=== PATIENT | female | born 1970 | race Caucasian/White ===

== ENCOUNTER 2019-11-11 10:11 | Outpatient (CLI) | payer BC, SELFPAY ==
--- NOTE | ~2019-11-11 | MM_ITS ---
EXAMINATION: MM screening baldo BI w yana HISTORY: Screening mammogram TECHNIQUE: Craniocaudal and mediolateral oblique 3-D tomosynthesis images were obtained and synthetic 2-D images were generated. CAD analysis was submitted and interpreted. COMPARISON: 05/07/2018 diagnostic left digital mammogram 04/26/2018, 03/27/2017 bilateral digital screening mammogram examinations BREAST PARENCHYMAL COMPOSITION: The breasts are heterogeneously dense, which may obscure small masses . FINDINGS: There is no evidence of suspicious mass, calcification, or architectural distortion to sugg est malignancy in either breast. There has been no suspicious interval change. IMPRESSION: 1. No mammographic evidence of malignancy. 2. Recommend routine screening mammography in one year. BI-RADS Category 1: Negative Reviewed, dictated and finalized at location A.
== END 2019-11-11 10:12 | disposition home or self-care (01) ==
LOC: ANHIMG 10:36
PROVIDERS: PCP Family Medicine; Visit Provider Physician Assistant
DX: Z12.31 Encounter for screening mammogram for malignant neoplasm of breast (principal)
CPT/HCPCS: 77063; 77067

== ENCOUNTER 2021-04-19 07:44 | Outpatient (CLI) | payer BC, SELFPAY ==
--- NOTE | ~2021-04-19 | MM_ITS ---
EXAMINATION: MM screening baldo BI w yana HISTORY: Screening TECHNIQUE: Craniocaudal and mediolateral oblique 3-D tomosynthesis images were obtained and synthetic 2-D images were generated. CAD analysis was submitted and interpreted. COMPARISON: Comparison to multiple prior studies sequentially, with oldest reviewed study dated 06/03. BREAST PARENCHYMAL COMPOSITION: The breasts are heterogeneously dense, which may obscure small masses . FINDINGS: There is no evidence of suspicious mass, calcification, or architectural distortion to sugg est malignancy in either breast. There has been no suspicious interval change. IMPRESSION: 1. No mammographic evidence of malignancy. 2. Recommend routine screening mammography in one year. BI-RADS Category 1: Negative Reviewed, dictated and finalized at location A.
== END 2021-04-19 07:45 | disposition home or self-care (01) ==
LOC: ANHIMG 07:46
PROVIDERS: PCP Physician Assistant; Visit Provider Physician Assistant
DX: Z12.31 Encounter for screening mammogram for malignant neoplasm of breast (principal)
CPT/HCPCS: 77063; 77067

== ENCOUNTER 2021-04-30 09:05 | Outpatient (CLI) | payer BC, SELFPAY ==
--- NOTE | ~2021-04-30 | US_ITS ---
EXAMINATION: US pelvic complete w TV DATE: 04/30/2021 09:53 INDICATION: Displacement of IUD. Comparison:No prior studies for comparison. TECHNIQUE: Multiple transabdominal and endovaginal sonographic images of the pelvis performed. FINDINGS: The uterus measures 9.9 x 6.5 x 6.1 cm. There is a uterine fibroid measuring 1.6 x 1.7 x 1. 3 cm. IUD is identified in the endometrium. The endometrial complex measures 11 mm. The ovaries are not visualized. There is no free fluid in the pelvis. There are no abnormal masses seen on either side. IMPRESSION: 1. 1.7 cm uterine fibroid. 2: IUD in expected position in the endometrium. Reviewed, dictated and finalized at location A.
== END 2021-04-30 09:06 | disposition home or self-care (01) ==
PROVIDERS: PCP Physician Assistant; Visit Provider Obstetrics & Gynecology
DX: Z97.5 Presence of (intrauterine) contraceptive device (principal); D25.9 Leiomyoma of uterus, unspecified
CPT/HCPCS: 76830; 76856

== ENCOUNTER 2021-10-21 00:13 | Day surgery (SDC) | payer BC, SELFPAY ==
[2021-08-19 15:35] VITALS: BMI 28.0
--- NOTE | 2021-08-19 15:54 | PC.NURSE ---
Report to the Outpatient Waiting Room, entrance under the green pavilion located off [facility], at time 1000 on date _08/26/21 . OR Time: __1200 . - You and your visitor will be asked a series of questions to screen for COVID 19 for your protection. - A mask is required within the hospital. - Only one visitor is allowed at this time. Patient visitors will be guided where to wait when not with patient. Preoperative COVID Testing Requirements: No COVID Test needed if: (proof is required; if not received patient will have Rapid Test prior to entry) - Patient has received COVID Vaccine at least 14 days prior to procedure date or - Patient has positive COVID test result within last 90 days of surgery date. COVID Test needed if above criteria is not met If not COVID vaccinated a COVID test must be conducted within 72 hours of surgery and patient is asked to isolate self from time of testing until procedure. You will go to the [employer] [facility] Testing Site for your COVID testing. The [employer] [facility] Testing site is located at the corner of [address] [facility]. You will only be called if COVID results are positive and your surgeon may reschedule your elective surgery date. Patients may have clear liquids (water, carbonated beverages, clear teas, apple juice) until 3 hours prior to surgery with a maximum of 20 ounces. - No food from midnight until time of surgery - Infants may have breast milk until 4 hours before surgery, infant formula 6 hours prior to surgery. - Children will be allowed to drink immediately following surgery. If applicable, please bring a bottle or sippy cup to assist with drinking. Juice, water, soda, and popsicles are readily available. For infants on formula, please bring formula the day of surgery. Pacifiers are allowed. Take the following medications with a SIP of water the morning of surgery: ___N/A Medications to discontinue per physician ___STOP PRN NSAIDS Date to take last dose___08/23/21 Please no make-up, nail faroese, hairspray, perfume, deodorant, or body powder the day of surgery. No jewelry (including any body piercings) or valuables the day of surgery, leave them at home. Please take a shower or bath the night before, or the morning of, surgery with an antibacterial soap. Wear comfortable, loose fitting clothing. Children are encouraged to wear pajamas. - Jewelry must be removed prior to entering the operating room. Rings and piercings that are not removed may be cut off. - The hospital will not accept responsibility for valuables. - Please leave all valuables, including medications, at home the day of surgery. If you are going home after surgery, a licensed emergency detail driver must drive you home. - NO public transportation without another adult. - We recommend that an adult stay with you for 24 hours following discharge. - We also recommend that you do not drive, make important decision, drink alcoholic beverages, or take any drugs that were not prescribed by your health care provider for at least 24 hours after your discharge time. For Pediatric surgeries, we recommend two adults accompany the child home (only one inside the building at this time). Follow any additional instructions given to you from your surgeon. Telephone instructions given to __DEBRA and asked if any additional questions and then verbalized understanding. Patient advised to call surgeon office or pre surgery nurse liaison [phone] if any additional questions.
--- NOTE | 2021-08-26 07:56 | PM.IMHP ---
H&P: HPI History of Present Illness Date/Time: 08/26/21 07:56 51 y/o with monthly cycles and IUD in place but strings cannot be seen. She wants new Mirena since she is not yet in menopause Chief Complaint: IUD strings lost, IUD removal and reinsertion Review of Systems Review of Systems: All systems reviewed & are unremarkable except as noted in HPI and below PMFSH Past Medical History Medical History Encounter for IUD insertion 2013, in [place] Surgical History Surgical History History of dilation and curettage 2013 Previous section x3 Family History Family History Father Pancreatic cancer Mother Breast cancer Diabetes mellitus Grandparent Cancer Social History Social History Smoking status: Never smoker Alcohol intake: current Alcohol use details: social Substance use: never Substance use type: does not use Living arrangements: with family Spiritual care concerns: No Meds Home Medications and Allergies Home Medications Medication Instructions Recorded Confirmed Type levonorgestrel 20 mcg/24 hours (7 1 insert INTRAUTERINE ONCE 04/12/21 08/19/21 History yrs) 52 mg intrauterine device Allergies Allergy/AdvReac Type Severity Reaction Status Date / Time No Known Allergies Allergy Unknown Verified 07/01/21 14:55 Exam Const: General: no acute distress, alert and awake Resp: Auscultation: clear to auscultation bilaterally Cardio: Rate: regular rate Rhythm: regular rhythm GI: Inspection: non-distended GI Palp: Yes Soft to palpation and No Tenderness to palpation present (GI) : Speculum Exam - Cervix: Other cervical findings present (IUD string not seen) Bimanual exam- vagina & uterus: normal bimanual exam, uterine size normal, uterine mobility normal, non-tender and soft Bimanual Exam- Adnexa, other: normal adnexae, no masses and No adnexal tenderness Extrem: General: no pedal edema and no calf tenderness Psych: Mental Status: mental status grossly normal Assessment and Plan Assessment and plan (1) IUD strings lost: Code(s): T83.32XA - Displacement of intrauterine contraceptive device, initial encounter Status: Acute Assessment and Plan: She signed consent after risks, benefits, complications, and alternatives discussed for D&C, hysteroscopy, removal of IUD, and insertion of new IUD. Risks include but are not limited to bleeding; transfusion; infection; uterine perforation; need for further surgery and/or longer recovery time; risk of anesthesia. She expressed understanding and wishes to proceed. (2) Contraceptive management: Code(s): Z30.9 - Encounter for contraceptive management, unspecified Status: Acute
[2021-10-10 13:56] VITALS: BMI 28.0
--- NOTE | 2021-10-10 14:03 | PC.NURSE ---
Report to the Outpatient Waiting Room, entrance under the green pavilion located off [facility], at time 1100 on date 10/21/21. OR Time: 1300. - You and your visitor will be asked a series of questions to screen for COVID 19 for your protection. - A mask is required within the hospital. One visitor will be allowed to accompany the patient into the hospital. Patients visitor will be instructed to remain with patient at all times or leave the building. We will allow the visitor to come back to the postoperative area when patient is ready. Preoperative COVID Testing Requirements: No COVID Test needed if: (proof is required; if not received patient will have Rapid Test prior to entry) - Patient has received COVID Vaccine at least 14 days prior to procedure date or - Patient has positive COVID test result within last 90 days of surgery date. COVID Test needed if above criteria is not met Patients may have clear liquids (water, carbonated beverages, clear teas, apple juice) until 3 hours prior to surgery with a maximum of 20 ounces. - No food from midnight until time of surgery Take the following medications with a SIP of water the morning of surgery: NONE Medications to discontinue per physician: N/A Date to take last dose: N/A Please no make-up, nail [place] islander, hairspray, perfume, deodorant, or body powder the day of surgery. No jewelry (including any body piercings) or valuables the day of surgery, leave them at home. Please take a shower or bath the night before, or the morning of, surgery with an antibacterial soap. Wear comfortable, loose fitting clothing. - Jewelry must be removed prior to entering the operating room. Rings and piercings that are not removed may be cut off. - The hospital will not accept responsibility for valuables. - Please leave all valuables, including medications, at home the day of surgery. If you are going home after surgery, a licensed home delivery driver must drive you home. - NO public transportation without another adult. - We recommend that an adult stay with you for 24 hours following discharge. - We also recommend that you do not drive, make important decision, drink alcoholic beverages, or take any drugs that were not prescribed by your health care provider for at least 24 hours after your discharge time. Follow any additional instructions given to you from your surgeon. Telephone instructions given to LISA YOU and asked if any additional questions and then verbalized understanding. Patient advised to call surgeon office or pre surgery nurse liaison [phone] if any additional questions.
--- NOTE | 2021-10-17 15:48 | PM.IMHP ---
H&P: HPI History of Present Illness Date/Time: 10/17/21 15:48 She has monthly cycles, and current IUD is but was unable to be removed in office Chief Complaint: IUD, IUD strings lost Review of Systems Review of Systems: All systems reviewed & are unremarkable except as noted in HPI and below PMFSH Past Medical History Medical History Encounter for IUD insertion 2013, in [place] Surgical History Surgical History History of dilation and curettage 2013 Previous section x3 Family History Family History Father Pancreatic cancer Mother Breast cancer Diabetes mellitus Grandparent Cancer Social History Social History Smoking status: Never smoker Alcohol intake: current Drinks per week: 1 Alcohol use details: social Substance use: never Substance use type: does not use Spiritual care concerns: No Meds Home Medications and Allergies Home Medications Medication Instructions Recorded Confirmed Type levonorgestrel 20 mcg/24 hours (7 1 insert INTRAUTERINE ONCE 04/12/21 10/10/21 History yrs) 52 mg intrauterine device Allergies Allergy/AdvReac Type Severity Reaction Status Date / Time No Known Allergies Allergy Unknown Verified 10/10/21 13:57 Exam Const: General: healthy appearing, no acute distress, alert and awake Resp: Auscultation: clear to auscultation bilaterally Cardio: Rate: regular rate Rhythm: regular rhythm GI: Inspection: non-distended GI Palp: Yes Soft to palpation and No Tenderness to palpation present (GI) : Bimanual exam- vagina & uterus: normal bimanual exam, uterine size normal, uterine mobility normal, non-tender and soft Bimanual Exam- Adnexa, other: normal adnexae, no masses and No adnexal tenderness Extrem: General: no pedal edema and no calf tenderness Psych: Mental Status: mental status grossly normal Assessment and Plan Assessment and plan (1) IUD strings lost: Code(s): T83.32XA - Displacement of intrauterine contraceptive device, initial encounter Status: Acute Assessment and Plan: She signed consent after risks, benefits, complications, and alternatives discussed for D&C, hysteroscopy, removal of UD, placement of new IUD. She expressed understanding and wishes to proceed (2) Contraceptive management: Code(s): Z30.9 - Encounter for contraceptive management, unspecified Status: Acute
--- NOTE | 2021-10-19 13:05 | P.PNAN_ITS ---
Anes - Initial Pre Proc Eval Procedure: Operation Date: 10/21/21 13:00 Proposed Procedures p Hysteroscopy with Removal of Intrauterine Device and Insertion of Intrauterine Device - Emely Fay MD Date/Time: 10/19/21 13:05 Surgeon: Emely Fay MD Pre Op Diagnosis: IUD string lost, contraceptive management Patient Data Age: 51 Gender: F Height: 1.6 m Weight: 72 kg Allergies Allergy/AdvReac Type Severity Reaction Status Date / Time No Known Allergies Allergy Unknown Verified 10/21/21 11:15 Home Medications Medication Instructions Recorded Confirmed Type levonorgestrel 20 mcg/24 hours (7 1 insert INTRAUTERINE ONCE 04/12/21 10/10/21 History yrs) 52 mg intrauterine device hydrocodone-acetaminophen 1 tablet PO Q4H PRN #10 tablet 10/21/21 Rx ibuprofen 600 mg PO Q6H PRN #60 tablet 10/21/21 Rx Patient hx anesthesia problems: none Family hx anesthesia problems: none Results Review: All pre-operative results and documents have been reviewed as part of the pre-operative evaluation. [facility]LY [facility] Past Medical History Medical History Encounter for IUD insertion 2012, in [place] Surgical History Surgical History History of dilation and curettage 2013 Previous section x3 Family History Family History Father Pancreatic cancer Mother Breast cancer Diabetes mellitus Grandparent Cancer Social History Social History Smoking status: Never smoker Alcohol intake: current Drinks per week: 1 Alcohol use details: social Substance use: never Substance use type: does not use Living arrangements: with family Spiritual care concerns: No Anes - Eval Final PreProcedure Day of Procedure 10/19/21 13:05 Patient weight: overweight Heart: regular rate and rhythm Lungs: clear to auscultation and normal air movement Airway: Mallampati scale class II Neurological: alert and oriented Last oral intake: >/= 8 hours ASA classification: II Emergent: no Anesthetic plan: proceed Anesthesia type and monitoring: general GIVS and standard monitoring Results Review: All pre-operative results and documents have been reviewed as part of the pre-operative evaluation. Informed Consent: The patient's anesthetic plan and its attendant risks and benefits were discussed with the patient/family/POA. Questions were solicited and answers provided to the satisfaction of the patient/family/POA.
[2021-10-21] MEDS: ACETAMINOPHEN 500 MG TABLET 1000 MG PO (11:35)
[2021-10-21] MEDS: LACTATED RINGERS 1,000 ML 30 ML IV CONT (11:35)
--- NOTE | 2021-10-21 12:06 | WPDHPUPDATE1 ---
History and Physical Update Update Date/Time: 10/21/21 12:06 History and Physical has been reviewed, including an updated exam of the patient. There are NO changes in the patient's condition. Risks, benefits, and alternatives have been discussed and questions answered. Patient agrees to proceed with procedure.
[2021-10-21] MEDS: KETOROLAC 30 MG/ML VIAL (*BKC) IV PUSH (13:26)
--- NOTE | 2021-10-21 13:31 | P.OP_ITS ---
Procedure Note - Detailed Date of Procedure 10/21/21 Pre-op Diagnosis IUD string lost, contraceptive management Post-op Diagnosis Same Procedure Performed Hysteroscopic IUD removal, insertion of new Mirena IUD Surgeon Emely Fay MD Anesthesia MAC Indications IUD with strings not visible, desires new IUD Findings normal endometrial cavity with IUD intact inside endometrium, removed easily intact Description of Procedure Mirena lot #[id number], expiration date 09/2023, [facility] #[id number] She was taken to the operating room where she was sedated and placed in the dorsal lithotomy position. A speculum was placed in the vagina. Paracervical block was performed with Marcaine. The posterior lip of the cervix was grasped with a single-tooth tenaculum. The uterus sounded to 10 cm. The cervix was dil ated to a last passage of the hysteroscope. The IUD string was visible and then the IUD device. A grasper was placed hysteroscopic [place]. Under direct visualization, the IUD was grasped and removed easily intact. Her new Mirena device was then placed per manufacture's instructions. The IUD string was trimmed to 4 cm. The tenaculum was removed. The tenaculum site was noted to be hemostatic. All instruments were removed from the vagina. She tolerated the procedure well. Sponge, needle, lap, and instrument counts were correct x2. She was taken to the recovery room in stable condition. Estimated Blood Loss 5 Drains No Packing No Pathology None sent Complications No immediate complications Condition Stable Disposition PACU
[2021-10-21 13:35] VITALS: BP 107/69; PULSE 69; RESP 16; O2SAT 93
[2021-10-21 14:05] VITALS: BP 122/67; PULSE 49
== END 2021-10-21 14:32 | disposition home or self-care (01) ==
PROVIDERS: PCP Physician Assistant; Visit Provider Obstetrics & Gynecology
PROC: 0U5B8ZZ Destruction of Endometrium, Via Natural or Artificial Opening Endoscopic (ICD-10-PCS; CPT 58563; principal; 2021-10-21 13:00)
DX: T83.32XA Displacement of intrauterine contraceptive device, initial encounter (principal); Z30.9 Encounter for contraceptive management, unspecified
CPT/HCPCS: 58300; 58562; A9270; J1100; J1885; J2250; J2405; J2704; J3010; J7030; J7120

== ENCOUNTER 2022-04-21 09:33 | Outpatient (CLI) | payer BC, SELFPAY ==
--- NOTE | ~2022-04-21 | MM_ITS ---
EXAMINATION: MM screening baldo BI w yana HISTORY: Screening mammogram, family history of breast cancer in her mother. TECHNIQUE: Craniocaudal and mediolateral oblique 3-D tomosynthesis images were obtained and synthetic 2-D images were generated. CAD analysis was submitted and interpreted. COMPARISON: 04/19/2021, 11/11/2019 BREAST PARENCHYMAL COMPOSITION: The breasts are heterogeneously dense, which may obscure small masses . FINDINGS: There is no suspicious mass, calcification, or architectural distortion to suggest malignan cy in either breast. There has been no suspicious interval change. IMPRESSION: 1. No mammographic evidence of malignancy. 2. Recommend routine screening mammography in one year. BI-RADS Category 1: Negative Reviewed, dictated and finalized at location A.
== END 2022-04-21 09:34 | disposition home or self-care (01) ==
LOC: ANHIMG 09:35
PROVIDERS: PCP Physician Assistant; Visit Provider Physician Assistant
DX: Z12.31 Encounter for screening mammogram for malignant neoplasm of breast (principal)
CPT/HCPCS: 77063; 77067

== ENCOUNTER → 2022-06-21 07:57 | Outpatient (CLI) | payer BC, SELFPAY ==
--- NOTE | ~2022-06-21 | US_ITS ---
EXAMINATION: US abdomen complete DATE: 06/21/2022 09:04 INDICATION: Abdominal distension (gaseous) TECHNIQUE: Multiple grayscale and Doppler ultrasound images of the abdomen were obtained. COMPARISON: None available. FINDINGS: Pancreas obscured by bowel gas. The liver is normal with normal echogenicity and echotextur e. Simple liver cysts noted in the left and right lobes. No surface nodularity. Normal hepatopetal fl ow in the main portal vein. The gallbladder is normal with no abnormal wall thickening, pericholecyst ic fluid or stones. The common bile duct measures 4 mm. There was no sonographic Grossman sign. The vis ualized portions of the aorta and inferior vena cava are normal. The right kidney measures 10.7 x 4.6 x 5.1. The left kidney measures 11.4 x 4.8 x 4.5. The kidneys de monstrate normal parenchymal echogenicity. There is no hydronephrosis. The spleen is normal in appear ance and measures 8.8 cm. IMPRESSION: Pancreas was obscured by bowel gas. Otherwise normal abdominal ultrasound findings. Reviewed, dictated and finalized at location K. INE INSPECTOR IMPRESSION: Pancreas was obscured by bowel gas. Otherwise normal abdominal ultrasound findi ngs.
--- NOTE | ~2022-06-21 | US_ITS ---
EXAMINATION: US pelvic complete w TV DATE: 06/21/2022 09:04 INDICATION: Irregular bleeding. Comparison:Ultrasound dated 04/30/2021 TECHNIQUE: Multiple transabdominal and endovaginal sonographic images of the pelvis performed. FINDINGS: The uterus measures 8.4 x 6.4 x 8.4 cm. There are uterine fibroids, largest measuring 4.5 x 3.9 x 2.9 cm. The endometrial complex measures 3 mm. The ovaries are not visualized. There is no free fluid in the pelvis. There are no abnormal masses seen on either side. IMPRESSION: 1. Uterine fibroids, largest measuring 4.5 x 3.9 x 2.9 cm. Reviewed, dictated and finalized at location B. OLE SCHEDULER
== END ==
PROVIDERS: PCP Physician Assistant; Visit Provider Physician Assistant
DX: N92.6 Irregular menstruation, unspecified (principal); R14.0 Abdominal distension (gaseous); D25.9 Leiomyoma of uterus, unspecified
CPT/HCPCS: 76700; 76830; 76856

== ENCOUNTER 2024-01-11 12:18 | Outpatient (CLI) | payer BC, SELFPAY ==
--- NOTE | ~2024-01-11 | MMUS_ITS ---
EXAMINATION: MM diagnostic baldo LT w yana, US breast LT limited HISTORY: Follow-up left breast mass TECHNIQUE: Additional 3-D tomosynthesis images of the left breast were performed and synthetic 2-D im ages were generated. CAD analysis was submitted and interpreted. High resolution Limited left breast ultrasound was performed. COMPARISON: Comparison to multiple prior studies sequentially, with oldest reviewed study dated 04/26. BREAST PARENCHYMAL COMPOSITION: Not dense: There are scattered areas of fibroglandular density. FINDINGS: MAMMOGRAPHIC FINDINGS: There is a small radiolucent mass in the upper outer quadrant of the left breast anteriorly near the nipple. There are no suspicious calcifications or architectural distortion. ULTRASOUND: Limited left breast ultrasound: At 12:00 near the nipple there is a 1 cm cyst corresponding to the ma mmographic finding. No suspicious masses to suggest malignancy. IMPRESSION: 1. No evidence for malignancy in the left breast. Benign finding. 2. Routine yearly screening mammogram and regular clinical breast examination are recommended. BI-RADS CATEGORY 2 - BENIGN FINDINGS Reviewed, dictated and finalized at location B. IMPRESSION: 1. No evidence for malignancy in the left breast. Benign finding. 2. Routine yearly screening mammogram and regular clinical breast examination a re recommended. BI-RADS CATEGORY 2 - BENIGN FINDINGS
== END 2024-01-11 12:19 | disposition home or self-care (01) ==
LOC: ANHIMG 12:26
PROVIDERS: PCP Physician Assistant; Visit Provider Physician Assistant
DX: R92.8 Other abnormal and inconclusive findings on diagnostic imaging of breast (principal)
CPT/HCPCS: 76642; 77061; 77065; G0279

== ENCOUNTER 2025-06-21 13:27 | Outpatient (CLI) | payer BC, SELFPAY ==
--- NOTE | ~2025-06-21 | MM_ITS ---
EXAMINATION: MM screening baldo BI w yana HISTORY: Screening TECHNIQUE: Craniocaudal and mediolateral oblique 3-D tomosynthesis images were obtained and synthetic 2-D images were generated. CAD analysis was submitted and interpreted. COMPARISON: Comparison to multiple prior studies sequentially, with oldest reviewed study dated , 04/26/2018 BREAST PARENCHYMAL COMPOSITION: Dense: The breasts are heterogeneously dense, which may obscure small masses. FINDINGS: There is no evidence of suspicious mass, calcification, or architectural distortion to suggest malignancy in either breast. IMPRESSION: 1. No mammographic evidence of malignancy. 2. Recommend routine screening mammography in one year. BI-RADS Category 1: Negative Reviewed, dictated and finalized at location [facility]
--- OUTSIDE RECORDS SUMMARY | 2025-06-21 20:06 | XMS_ITS | Clinical Summary ---
Author Organization [facility] Address [address] [place] [id number] Care Team Providers Care Turbine Technician Name Role Phone Gerda Abruto Primary Care Provider [phone] Allergies No known active allergies Medications hydroCHLOROthia zide (HYDRODIURIL) 25 MG tabletIndicatio ns:Bloating Take 1 tablet (25 mg total) by mouth every morning. 90 tablet 3 05/12/2024 Active omeprazole (PRILOSEC) 40 MG capsuleIndicati ons:Epigastric pain Take 1 capsule (40 mg total) by mouth daily. 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 PAULINO RACQUEL), MRNA, LNP-S, PF, 50 MCG/ 0.25 ML DOSE 08/15/2021 Family History Medical History Relation Comments Cancer Father Pancreatic Pancreas Disease Father Breast Cancer Mother Cancer Mother Breast Diabetes Mother Relation Status Comments Father Mother Alive Social History Tobacco Use Types Packs/Day Years Used Date Smoking Tobacco: Never Passive Smoke Exposure: Never Smokeless Tobacco: Never Tobacco Cessation:Counseling Given: No Alcohol Use Standard Drinks/Week Comments Yes 0 (1 standard drink = 0.6 oz pur e alcohol) Social PHQ-2 Answer Date Recorded Patient Health Questionnaire-2 Score 0 06/15/2024 Comments No Sex and Gender Information Value Date Recorded Sex Assigned at Not on file Legal Sex Female 12:40 PM WELT WHEELER Gender Identity Not on file Sexual Orientation Not on file Last Filed Vital Signs Vital Sign Reading Time Taken Comments Blood Pressure 132/87 06/15/2024 8:30 AM WELT WHEELER Pulse 74 06/15/2024 8:30 AM WELT WHEELER Temperature 37 C (98.6 F) 06/15/2024 8:30 AM WELT WHEELER Respiratory Rate 16 06/15/2024 8:30 AM WELT WHEELER Oxygen Saturation 99% 06/15/2024 8:30 AM WELT WHEELER Inhaled Oxygen Concentration - - Weight 80.3 kg (177 lb) 06/15/2024 8:30 AM WELT WHEELER Height 159.4 cm (5' 2.75) 06/15/2024 8:30 AM CS T Body Mass Index 31.6 06/15/2024 8:30 AM WELT WHEELER Plan of Treatment Health Maintenance Due Date Last Done Comments Hepatitis C 01/13/1986 DTaP, Tdap and Td Vaccines (1 - Tdap) 01/13/1987 Hepatitis B Vaccines (1 of 3 - 19+ 3-dose series) 01/13/1987 Pneumococcal Vaccine: 50+ Years (1 of 1 - PCV) 01/13/2018 Zoster Vaccines (1 of 2) 01/13/2018 PHQ-2 (Physician [place]) 08/03/2024 06/15/2024 COVID-19 Vaccine ( season) 2025 08/15/2021, 11/08/2020, 10/11/2020 Influenza Adult (#1) 2025 Annual Physical 05/12/2025 05/12/2024, 10/2022, 02/11/2021, Additional history exists Mammogram Screening 01/10/2026 01/11/2024, 06/08/2023, 04/21/2022 Cervical Cancer Screening Pap Smear (Age 30 to 64) Every 3 Years 05/05/2026 05/05/2023, 05/05/2023, 01/02/2022, Additional history exists Colorectal Cancer Screening FIT-DNA (3 Years) 06/10/2027 06/10/2024, 06/10/2024, 09/20/2020 Cervical Cancer Screening Pap with HPV Testing (Age 30 to 64) Every 5 Years 05/05/2028 05/05/2023, 02/11/2021 Cervical Cancer Screening with HPV 05/05/2028 Hepatitis A Vaccines Aged Out No long er eligible based on patient's age to complete this topic Meningococcal B Vaccine Aged Out No l onger eligible based on patient's age to complete this topic Meningococcal Vaccine Aged Out No angela isabella eligible based on patient's age to complete this topic RSV Immunizations Under 20 Months Aged Out No longer eligible based on patient's age to complete this topic Procedures Procedure Name Priority Date/Time Associated Diagnosis Comments COLOGUARD (EXACT SCIENCE) Routine 06/10/2024 9:15 AM WELT WHEELER Colon cancer screening MAMMOGRAM GENERIC (SCAN ORDER) 01/11/2024 HUMAN PAPILLOMAVIRUS, HIGH-RISK TYPES Routine 05/05/2023 12:00 PM CDT CYTOPATH CERV/VAG THIN LAYER Routine 05/05/2023 9:33 AM CDT from Last 3 Months or Most Recently Relevant to Health Maintenance Results * COLOGUARD (EXACT SCIENCE) (06/10/2024 9:15 AM WELT WHEELER) COLOGUARD RESULT Negative Negative [facility] (CLIA #:[id number]) Comment: NEGATIVE TEST RESULT. A negative Cologuard result indicates a low likelihood that a colorectal cancer (CRC) or advanced adenoma (adenomatous polyps with more advanced pre-malignant features) is present. The chance that a person with a negative Cologuard test has a colorectal cancer is less than 1 in 1500 (negative predictive value >99.9%) or has an advanced adenoma is less than 5.3% (negative predictive value 94.7%). These data are based on a prospective cross-sectional study of 10,000 individuals at average risk for colorectal cancer who were screened with both Cologuard and colonoscopy. (Lucia Muller al, N Engl J Med 2014;370(14):7463-9339) The normal value (reference range) for this assay is negative. COLOGUARD RE-SCREENING RECOMMENDATION: Periodic colorectal cancer screening is an important part of preventive healthcare for asymptomatic individuals at average risk for colorectal cancer. Following a negative Cologuard result, the [place] [employer] Society and U.S. Multi-Society Task Force screening guidelines recommend a Cologuard re-screening interval of 3 years. References: [place] [employer] Guideline for Colorectal Cancer Screening: https://www.cancer.org/cancer/ewpbc-akdntn-cbcbkm/hqqytnwek-fdoqrarks-niwohqu/ac s-rec ommendations.html.; Karel DK, Christy KEVIN, Jg MarshK, Colorectal Cancer Screening: Recommendations for Physicians and Patients from the U.S. Multi-Society Task Force on Colorectal Cancer Screening , Am J Gastroenterology 2017; 112:3272-1260. TEST DESCRIPTION: Composite algorithmic analysis of stool DNA-biomarkers with hemoglobin immunoassay. Quantitative values of individual biomarkers are not reportable and are not associated with individual biomarker result reference ranges. Cologuard is intended for colorectal cancer screening of adults of either sex, 45 years or older, who are at average-risk for colorectal cancer (CRC). Cologuard has been approved for use by the U.S. FDA. The performance of Cologuard was established in a cross sectional study of average-risk adults aged 50-84. Cologuard performance in patients ages 45 to 49 years was estimated by sub-group analysis of near-age groups. Colonoscopies performed for a positive result may find as the most clinically significant lesion: colorectal cancer [4.0%], advanced adenoma (including sessile serrated polyps greater than or equal to 1cm diameter) [20%] or non- advanced adenoma [31%]; or no colorectal neoplasia [45%]. These estimates are derived from a prospective cross-sectional screening study of 10,000 individuals at average risk for colorectal cancer who were screened with both Cologuard and colonoscopy. (Lucia Muller al, N Engl J Med 2014;370(14):3700-4004.) Cologuard may produce a false negative or false positive result (no colorectal cancer or precancerous polyp present at colonoscopy follow up). A negative Cologuard test result does not guarantee the absence of CRC or advanced adenoma (pre-cancer). The current Cologuard screening interval is every 3 years. ([place] [employer] and U.S. Multi-Society Task Force). Cologuard performance data in a 10,000 patient pivotal study using colonoscopy as the reference method can be accessed at the following location: www.[employer].[facility]/results. Additional description of the Cologuard test process, warnings and precautions can be found at www.cologuard.com. STOOL STOOL SPECIMEN / Unknown 06/10/2024 9:15 AM WELT WHEELER 06/11/2024 12:24 PM WELT WHEELER us Gerda SALGADO BODY FLUIDS AND STOOLS ORDER OPAL Final Result Performing Organization Address City/[facility]/ZIP Co de Phone Number [facility] ([facility]) [address] [place] [place] [address], [employer] (CLIA #:[id number]) [address] [place] [address] * MAMMOGRAM GENERIC (SCAN ORDER) (01/11/2024) Anatomical Region Laterality Modality Other 01/11/2024 [facility] Scanned SCANNING Final Resu lt * HUMAN PAPILLOMAVIRUS, HIGH-RISK TYPES (05/05/2023 12:00 PM CDT) SPEC DESCRIPTION CERVICAL/END OCERVICAL 05/07/2023 10:50 AM CDT [facility] HPV DNA HIGH RISK NEGATIVE NEGATIVE 05/08/2023 2:19 PM CDT [facility] Comment:SEE CYTOLOGY REPORT 05/05/2023 12:0 0 PM CDT us Gerda SALAGDO PATHOLOGY/CYTOLOGY ORDERABLE S Final Result Performing Organization Address City/[facility]/ZIP Co de Phone Number [facility] [address] [place] [address], * Cytopath Cerv/Vag Thin Layer (05/05/2023 9:33 AM CDT) THIN PREP PAP [address] [phone] Department of Pathology Pathology Report CERVICAL/VAGINAL PAP SMEAR REPORT Name: ISELA ALVAREZ Age: 6 1970 (Age: 53) Location: [facility] Sex: F Collected Date: 05/05/2023 Hospital #: [id number] Date Received: 05/07/2023 Date Reported: 05/11/2023 Provider: GERDA SALAGDO INTERPRETATION CERVICAL/ENDOCERVI URSULA: SATISFACTORY FOR EVALUATION. ENDOCERVICAL/TRANS FORMATION ZONE COMPONENT ABSENT. NEGATIVE FOR INTRAEPITHELIAL LESION OR MALIGNANCY. NEGATIVE FOR HIGH RISK HPV. The FDA approved Aptima HPV assay is an in vitro nucleic acid amplification test for the qualitative detection of E6/E7 viral messenger RNA (mRNA) from 14 high-risk types of human papillomavirus (HPV) in cervical specimens. The high-risk HPV types detected by the assay include: 16,18,31,33,35,39, 45,51,52,56,58,59, 66, and 68. Electronically Signed Out By KWESI Delong (ASCP) CLINICAL HISTORY Z12.4 PAP TEST SCREENING ThinPrep Pap Test with HR HPV testing in patient > 30 years requested. Date of Last Menstrual Period: UNK Menstrual Status: Menstrual Suppression SPECIMEN SUBMITTED CERVICAL/ENDOCERVI URSULA Specimen Received:1 Thin Prep Vial, Image Assisted Pap (SMD) Please note: The Pap smear is not a diagnostic test. It is a screening test. Negative results on combined screening (Pap test and HPV-DNA) have a high negative predictive value (99.1-100 percent) for cervical cancer. The pap test is not effective in detecting cervical adenocarcinoma. 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
--- OUTSIDE RECORDS SUMMARY | 2025-06-21 20:06 | XMS_ITS | Clinical Summary ---
Author Organization [facility] [address] [place] [address] Care Team Providers Care Configuration Management Manager Name Role Phone Imelda Moreno DO Primary Care Provider [phone] Allergies No known active allergies Medications hydroCHLOROthia zide (HYDRODIURIL) 25 mg tablet Take 1 tablet (25 mg total) by mouth surface hydrologist before breakfast Active levonorgestreL (MIRENA) IUD 1 each by intrauterine route once Active Active Problems Problem Noted Date Diagnosed Date BMI 30.0-30.9,adult 05/30/2025 Assessment & Plan (05/30/2025 8:42 AM CDT): Chronic, not at goal I recommend regular exercise of at least 150min per week, diet rich in plant based foods and low in added sugars, processed carbohydrates, and high salt foods. I also recommend increasing your protein intake mostly with chicken and white fish and limited red meat. Orders: Lipid panel; Future Hemoglobin A1c; Future Leg swelling 05/30/2025 Assessment & Plan (05/30/2025 8:42 AM CDT): Chronic, stable Continue HCTZ 25 mg daily Orders: Comprehensive metabolic panel; Future CBC with auto differential; Future Thyroid Function [place]; Future Resolved Problems Problem Noted Date Diagnosed Date Resolved Date Hypertension, essential 05/30/202505/04 Encounters Date Type Department Care Team Description 05/31/2025 Results Follow-Up [facility] Primary Care at [address] [address] Imelda Moreno, DO Thyroid Function [place], CBC with auto differential, Hemoglobin A1c, Additional followed-up results: 4 05/30/2025 8:35 AM CDT Lab [address] [address] Leg swelling; Encounter for well adult exam without abnormal findings; BMI 30.0-30.9,adult 05/30/2025 7:30 AM CDT Office Visit [facility] Primary Care at [address] [address] Imelda Moreno DO Encounter for well adult exam without abnormal findings (Primary Dx); BMI 30.0-30.9,adult; Leg swelling from Last 3 Months Immunizations Immunization Administration Dates Next Due Moderna SARS-CoV-2 Monovalent Vaccination (12+ Y RS) 11/08/2020 Surgical History Surgery Date Site/Laterality Comments SECTION x3 DILATION AND CURETTAGE OF UTERUS Family History Medical History Relation Name Comments Pancreatic cancer Father Breast cancer Mother Diabetes Mother Relation Name Status Comments Father Mother Alive Social History Tobacco Use Types Packs/Day Years Used Date Smoking Tobacco: Never Smokeless Tobacco: Never Tobacco Cessation:Counseling Given: Not Answered Alcohol Use Standard Drinks/Week Comments Yes 0 (1 standard drink = 0.6 oz pur e alcohol) PHQ-2 Answer Date Recorded PHQ-2 Total Score (If total score is 3 or more points, staff should administer the PHQ-9) 0 05/30/2025 AUDIT-C Answer Date Recorded Q1: How often do you have a drink containing alc ohol? Monthly or less 05/30/2025 Q2: How many drinks containi ng alcohol do you have on a typical day when you are drinking? 1 or 2 05/30/2025 Q3: How often do you have si x or more drinks on one occasion? Never 05/30/2025 Comments Unknown Sex and Gender Information Value Date Recorded Sex Assigned at Not on file Legal Sex Female 3:40 PM CDT Gender Identity Not on file Sexual Orientation Not on file Last Filed Vital Signs Vital Sign Reading Time Taken Comments Blood Pressure 118/80 05/30/2025 7:57 AM CDT Pulse 70 05/30/2025 7:57 AM CDT Temperature 36.5 C (97.7 F) 05/30/2025 7:57 AM CDT Respiratory Rate 16 05/30/2025 7:57 AM CDT Oxygen Saturation 95% 05/30/2025 7:57 AM CDT Inhaled Oxygen Concentration - - Weight 77.5 kg (170 lb 12.8 oz) 05/30/2025 7:57 AM CDT Height 160 cm (5' 3) 05/30/2025 7:57 AM CDT Body Mass Index 30.26 05/30/2025 7:57 AM CDT Plan of Treatment Health Maintenance Due Date Last Done Comments Breast Cancer Screening-Mammogram 08/30/2025 Postponed from 1968 (Patient declined, but will receive in the future) Cervical Cancer Screening 08/30/2025 05/05/2023 Po stponed from 05/05/2024 (Patient declined, but will receive in the future) Colon Cancer Screening-Colonoscopy 08/30/2025 Postponed from 1968 (Patient declined, but will receive in the future) DTaP/Tdap/Td Vaccine (1 - Tdap) 08/30/2025 Postponed from 01/13/1979 (Patient declined, but will receive in the future) Influenza Vaccine (#1) 2026 Postp oned from 04/03/2025 (Patient declined, but will receive in the future) Covid-19 Vaccine ( season) 2026 08/15/2021, 11/08/2020, 11/08/2020, Additional history exists Postponed from 04/03/2025 (Patient declined, but will receive in the future) Depression Screening 05/30/2026 05/30/2025 Regular Well Visit/Exam 18-64 05/30/2026 05/30/2025 Zoster Vaccine (1 of 2) 05/30/2026 Post poned from 01/13/2018 (Patient declined, but will receive in the future) Hepatitis B Screening Discontinued Hepatitis C Screening Discontinued Pneumococcal vaccine <65 Aged Out No longer eligible based on patient's age to complete this topic Procedures Procedure Name Priority Date/Time Associated Diagnosis Comments EGFR Routine 05/30/2025 8:41 AM CDT Leg swelling DIFFERENTIAL AUTO Routine 05/30/2025 8:4 1 AM CDT Leg swelling COMPREHENSIVE METABOLIC PANEL Routine 05/30/2025 8:41 AM CDT Leg swelling LIPID PANEL Routine 05/30/2025 8:41 AM CDT Encounter for well adult exam without abnormal findings BMI 30.0-30.9,adult HEMOGLOBIN A1C Routine 05/30/2025 8:41 AM CDT Encounter for well adult exam without abnormal findings BMI 30.0-30.9,adult CBC WITH AUTO DIFFERENTIAL Routine 05/30/2025 8:41 AM CDT Leg swelling THYROID FUNCTION CASCADE Routine 05/30/2025 8:41 AM CDT Leg swelling from Last 3 Months Results * eGFR (05/30/2025 8:41 AM CDT) eGFR 82 >=60 mL/min/1. 73 m2 Comment: Interpretive Data Reference Interval Normal >/= 90 mL/min/1.73m2 Mildly decreased* 60 - 89 mL/min/1.73m2 Mildly to moderately decreased 45 - 59 mL/min/1.73m2 Moderately to severely decreased 30 - 44 mL/min/1.73m2 Severely decreased 15 - 29 mL/min/1.73m2 Kidney Failure < 15 mL/min/1.73m2 *Relative to young adult level Estimated glomerular filtration rate is determined by the 2020 CKD-EPI equation recommended by the National Kidney Foundation (A Unifying Approach to GFR Estimation: Recommendations of the NKF-ASK Task Force on Reassessing the Inclusion of Race in Diagnosing Kidney Disease, JASN 202). The CKD-EPI equation should not be used for patients with unstable renal function and has not been validated in children and those over 70. Current interpretive data was last reviewed 2021. Blood 05/30/2025 8:41 AM CDT 05/30/2025 10:32 AM CDT us Imelda Moreno DO LAB BLOOD ORDERABLES Final Resu lt [facility] [address] Department [place] [address] * Differential, auto (05/30/2025 8:41 AM CDT) Neutrophil abs 4.42 1.50 - 6.50 K/cumm Imm gran abs 0.02 0.00 - 0.10 K/cumm [facility] Lymphocyte abs 1.61 0.80 - 3.30 K/cumm [facility] Monocyte abs 0.60 0.20 - 0.80 K/cumm [facility] Eosinophil abs 0.13 0.00 - 0.50 K/cumm [facility] Basophil abs 0.06 0.00 - 0.10 K/cumm [facility] Neutrophil pct 64.6 % [facility] Comment: Interpretive Data Percent cell count reference ranges are not reported, since discordance with absolute values may lead to misinterpretation of CBC data. Current Interpretive Data was last revised on 2017. Imm gran pct 0.3 % [facility] Comment: Interpretive Data Percent cell count reference ranges are not reported, since discordance with absolute values may lead to misinterpretation of CBC data. Current Interpretive Data was last revised on 2017. Lymphocyte pct 23.5 % [facility] Comment: Interpretive Data Percent cell count reference ranges are not reported, since discordance with absolute values may lead to misinterpretation of CBC data. Current Interpretive Data was last revised on 2017. Monocyte pct 8.8 % [facility] Comment: Interpretive Data Percent cell count reference ranges are not reported, since discordance with absolute values may lead to misinterpretation of CBC data. Current Interpretive Data was last revised on 2017. Eosinophil pct 1.9 % [facility] Comment: Interpretive Data Percent cell count reference ranges are not reported, since discordance with absolute values may lead to misinterpretation of CBC data. Current Interpretive Data was last revised on 2017. Basophil pct 0.9 % [facility] Comment: Interpretive Data Percent cell count reference ranges are not reported, since discordance with absolute values may lead to misinterpretation of CBC data. Current Interpretive Data was last revised on 2017. Blood 05/30/2025 8:41 AM CDT 05/30/2025 10:33 AM CDT [facility] LAB BLOOD ORDERABLES Final Resu lt Performing Organization Address [facility] Co de Phone Number [address] [address] * Thyroid Function [place] (05/30/2025 8:41 AM CDT) Pathologist [facility] TSH 4.05 0.30 - 4.20 mcIUnit/mL Blood 05/30/2025 8:41 AM CDT 05/30/2025 10:32 AM CDT [facility] BLOOD ORDERABLES Final Resu lt Performing Organization Address [facility] de Phone Number [address] [address] * (ABNORMAL) CBC with auto differential (05/30/2025 8:41 AM CDT) [facility] WBC 6.84 3.80 - 9.90 K/cumm Hgb 15.2 11.9 - 15.5 g/dL [facility] Hct 45.6(H) 35.6 - 45.5 % [facility] Plt 271 150 - 400 K/cumm [facility] MPV 10.7 9.1 - 12.3 fL [facility] RBC 5.14 3.90 - 5.20 M/cumm [facility] MCV 88.7 81.3 - 96.4 fL [facility] MCH 29.6 27.1 - 33.3 pg [facility] MCHC 33.3 32.3 - 35.7 g/dL [facility] RDW CV 12.7 11.1 - 14.9 % [facility] RDW SD 41.5 35.7 - 48.1 fL [facility] NRBC abs 0.00 0.00 - 0.01 K/cumm [facility] Blood 05/30/2025 8:41 AM CDT 05/30/2025 10:33 AM CDT Imelda Moreno LAB BLOOD ORDERABLES Final Resu lt Performing Organization Address [facility] de Phone Number [facility] [address] [place] [address] * Hemoglobin A1c (05/30/2025 8:41 AM CDT) Hgb A1C 5.5 4.0 - 5.6 % Estimated Average Glucose 111 mg/dL [facility] Comment: The ADA recommends reporting an estimated Average Glucose (eAG) with all Hemoglobin A1c results using the equation derived from a study of 507 normal and diabetic adults. Minority populations were underrepresented and children were not included. (Diabetes Care 31:5671-6614, 2008). The eAG is not equivalent to a fasting glucose. Blood 05/30/2025 8:41 AM CDT 05/30/2025 10:33 AM CDT [facility] LAB BLOOD ORDERABLES Final Resu Performing Organization Address [facility] de Phone Number [facility] [place] [address] * (ABNORMAL) Lipid panel (05/30/2025 8:41 AM CDT) Cholesterol 208(H) 30 - 199 mg/dL Comment: Interpretive Data Ages < or = 19 years Acceptable: <170 mg/dL Borderline high: 170-199 mg/dL High: >or= 200 mg/dL Ages > or = 20 years Desirable: <200 mg/dL Borderline high: 200-239 mg/dL High: >or= 240 mg/dL Literature References: 1. Expert Panel on Integrated Guidelines for Cardiovascular Health and Risk Reduction in Children and Adolescents. Pediatrics 2011;128:S213 2. NCEP Expert Panel. Circulation 2004;110:227 Current Interpretive Data was last revised on 2018. Triglycerides 136 <=149 mg/dL [facility] Comment: Interpretive Data Ages < or = 9 years Acceptable: <75 mg/dL Borderline high: 75-99 mg/dL High: >or= 100 mg/dL Ages 10 to 20 years Acceptable: <90 mg/dL Borderline high: 90-129 mg/dL High: >or= 130 mg/dL Ages > or = 20 years Desirable: <150 mg/dL Borderline high: 150-199 mg/dL High: 200-499 mg/dL Very high: >or= 499 mg/dL Literature References: 1. Expert Panel on Integrated Guidelines for Cardiovascular Health and Risk Reduction in Children and Adolescents. Pediatrics 2011;128:S213 2. NCEP Expert Panel. Circulation 2004;110:227 Current Interpretive Data was last revised on 2018. HDL 52 >=40 mg/dL [facility] Comment: Interpretive Data Ages < or = 19 years Acceptable: >45 mg/dL Borderline low: 40-45 mg/dL Low: <40 mg/dL Ages > or = 20 years Desirable: >or= 60 mg/dL Low: <40 mg/dL Literature References: 1. Expert Panel on Integrated Guidelines for Cardiovascular Health and Risk Reduction in Children and Adolescents. Pediatrics 2011;128:S213 2. NCEP Expert Panel. Circulation 2004;110:227 Current Interpretive Data was last revised on 2018. LDL, calculated 132(H) <=129 mg/dL [facility] Comment: Interpretive Data Ages < or = 19 years Acceptable: <110 mg/dL Borderline high: 110-129 mg/dL High: >or= 130 mg/dL Ages > or = 20 years Optimal: <100 mg/dL Near optimal: 100-129 mg/dL Borderline high: 130-159 mg/dL High: >160 mg/dL Calculated using the Abdoul LDL-C estimating equation. This equation was implemented on 2024. Prior to this date LDL-C was estimated using the Friedewald equation. Literature References: 1. Expert Panel on Integrated Guidelines for Cardiovascular Health and Risk Reduction in Children and Adolescents. Pediatrics 2011;128:S213 2. NCEP Expert Panel. Circulation 2004;110:227 3. Abdoul Campos al. LEONARDA Cardiol. 2020 December 01;5(5):540-548. doi: 10.1001/jamacardio.2020.0013 Current Interpretive Data was last revised on 2024. Non-HDL Cholesterol 156 mg/dL [facility] Comment: Interpretive Data Ages < or = 19 years Acceptable: <120 mg/dL Borderline high: 120-144 mg/dL High: >145 mg/dL Ages > or = 20 years When triglycerides are >200 mg/dL, Non-HDL cholesterol is a secondary target of therapy with treatment goals that are 30 mg/dL greater than the LDL cholesterol target. Literature References: 1. Expert Panel on Integrated Guidelines for Cardiovascular Health and Risk Reduction in Children and Adolescents. Pediatrics 2011;128:S213 2. NCEP Expert Panel. Circulation 2004;110:227 Current Interpretive Data was last revised on 2018. Chol/HDL ratio 4 [facility] Blood 05/30/2025 8:41 AM CDT 05/30/2025 10:32 AM CDT Imelda Moreno DO LAB BLOOD ORDERABLES Final Resu lt [facility] [address] Department [place] [address] * Comprehensive metabolic panel (05/30/2025 8:41 AM CDT) Sodium 139 135 - 145 mmol/L Potassium, pl 4.2 3.3 - 4.9 mmol/L [facility] Chloride 100 97 - 110 mmol/L [facility] CO2 30 22 - 32 mmol/L [facility] Anion gap 9 2 - 15 mmol/L [facility] BUN 13 6 - 25 mg/dL [facility] Creatinine 0.83 0.60 - 1.10 mg/dL [facility] Glucose 94 70 - 199 mg/dL [facility] Comment: Interpretive Data Fasting glucose >/= 126 mg/dl is diagnostic for diabetes. Fasting is defined as no caloric intake for at least 8 hours. Fasting glucose between 100 mg/dl to 125 mg/dl is diagnostic of prediabetes. In a patient with classic symptoms of hyperglycemia or hyperglycemic crisis, a random glucose >/= 200 mg/dl is diagnostic for diabetes. In the absence of unequivocal hyperglycemia, results should be confirmed by repeat testing. The classification and Diagnosis of Diabetes Diabetes Care 2021; 46: S19-S40. Current interpretive data was last revised 2022. Calcium 9.7 8.5 - 10.3 mg/dL [facility] Bilirubin, total 0.5 0.1 - 1.2 mg/dL [facility] Protein, pl 7.2 6.5 - 8.5 g/dL [facility] Albumin 4.4 3.5 - 5.0 g/dL [facility] Alk phos 62 40 - 130 Units/L [facility] MH ALT 14 7 - 45 Units/L [facility] MH AST 17 10 - 45 Units/L [facility] Blood 05/30/2025 8:41 AM CDT 05/30/2025 10:32 AM CDT Imelda Moreno DO LAB BLOOD ORDERABLES Final Resu lt [facility] [address] Department [place] [address] from Last 3 Months Insurance Care Teams Configuration Management Manager Relationship Specialty Start Date End Date Imelda Moreno DO [address] [place] [address] PCP - General Family Medicine 05/30/25
--- OUTSIDE RECORDS SUMMARY | 2025-06-21 20:06 | XMS_ITS | Encounter Summary ---
Author Organization [facility] Healthcare Address [address] [place] [address] Care Team Providers Care Rodeo Performer Name Role Phone Imelda Moreno DO Primary Care Provider [phone] Encounter Details Date Type Department Care Team (Late st Contact Info) Description 05/31/2025 Results Follow-Up [facility] Primary Care at [address] [address] Imelda Moreno DO [address] [place] [address] [address] ROBERT B [address] [address] Thyroid Function [place], CBC with auto differential, Hemoglobin A1c, Additional followed-up results: 4 Social History Tobacco Use Types Packs/Day Years Used Date Smoking Tobacco: Never Smokeless Tobacco: Never Alcohol Use Standard Drinks/Week Comments Yes 0 [...] on file Sexual Orientation Not on file documented as of this encounter Plan of Treatment Not on file documented as of this encounter Visit Diagnoses Not on filedocumented in this encounter Care Teams Rodeo Performer Relationship Specialty Start Date End Date Imelda Moreno DO [address] [address] PCP - General Family Medicine 05/30/25 documented as of this encounter
== END 2025-06-21 13:28 | disposition home or self-care (01) ==
LOC: CHSIMG 13:30
PROVIDERS: Visit Provider Obstetrics & Gynecology
DX: Z12.31 Encounter for screening mammogram for malignant neoplasm of breast (principal)
CPT/HCPCS: 77063; 77067